=== PATIENT | female | born 1955 | race Caucasian/White ===

== ENCOUNTER 2017-06-08 10:48 | Outpatient (CLI) | payer OTHER ==
[~2017-06-08 10:48] MED LIST: GLEEVEC100 MG PO; VASERETIC; [UNRECOGNIZED DRUG - OTHER]
== END 2017-06-08 10:54 | disposition home or self-care (01) ==
LOC: SONOGRAMA 10:48
DX: M25.511 Pain in right shoulder (principal); M75.41 Impingement syndrome of right shoulder

== ENCOUNTER 2017-12-07 11:09 | Outpatient (CLI) | payer OTHER | END 2017-12-07 11:11 | disposition home or self-care (01) | LOC: RAD 11:09 | DX: M25.551 Pain in right hip (principal); M25.552 Pain in left hip ==

== ENCOUNTER 2018-02-19 09:49 | Outpatient (CLI) | payer OTHER | END 2018-02-19 09:52 | disposition home or self-care (01) | LOC: MAMO-SONO 09:49 | DX: Z12.31 Encounter for screening mammogram for malignant neoplasm of breast (principal); Z87.898 Personal history of other specified conditions; N64.89 Other specified disorders of breast; C91.11 Chronic lymphocytic leukemia of B-cell type in remission; C91.12 Chronic lymphocytic leukemia of B-cell type in relapse; C95.90 Leukemia, unspecified not having achieved remission; C95.91 Leukemia, unspecified, in remission; F32.89 Other specified depressive episodes; C91.10 Chronic lymphocytic leukemia of B-cell type not having achieved remission; E03.8 Other specified hypothyroidism; E66.8 Other obesity; E78.89 Other lipoprotein metabolism disorders; M15.8 Other polyosteoarthritis; M54.5 Low back pain; I11.9 Hypertensive heart disease without heart failure; Z68.31 Body mass index [BMI] 31.0-31.9, adult ==

== ENCOUNTER → 2018-03-12 | Outpatient (CLI) | payer OTHER | END | disposition home or self-care (01) | LOC: NUCLEAR 08:37 | DX: M54.5 Low back pain (principal); M15.9 Polyosteoarthritis, unspecified; C91.10 Chronic lymphocytic leukemia of B-cell type not having achieved remission; C91.11 Chronic lymphocytic leukemia of B-cell type in remission; I11.9 Hypertensive heart disease without heart failure; Z86.31 Personal history of diabetic foot ulcer; M81.0 Age-related osteoporosis without current pathological fracture ==

== ENCOUNTER 2019-04-14 11:19 | Outpatient (CLI) | payer OTHER | END 2019-04-14 16:37 | disposition home or self-care (01) | LOC: SONOGRAMA 11:19 | DX: M25.511 Pain in right shoulder (principal); M25.512 Pain in left shoulder; M25.551 Pain in right hip; M25.552 Pain in left hip ==

== ENCOUNTER 2019-05-04 14:07 | Outpatient (CLI) | payer OTHER | END 2019-05-04 14:15 | disposition home or self-care (01) | LOC: RAD 14:07 | DX: R07.89 Other chest pain (principal) ==

== ENCOUNTER 2019-07-11 09:33 | Outpatient (CLI) | payer OTHER | END 2019-07-13 06:28 | disposition home or self-care (01) | LOC: MAMO-SONO 09:33 | DX: Z12.31 Encounter for screening mammogram for malignant neoplasm of breast (principal); Z87.898 Personal history of other specified conditions; Z68.31 Body mass index [BMI] 31.0-31.9, adult; M81.0 Age-related osteoporosis without current pathological fracture; F32.89 Other specified depressive episodes; I11.9 Hypertensive heart disease without heart failure; M15.8 Other polyosteoarthritis; M54.5 Low back pain; C91.10 Chronic lymphocytic leukemia of B-cell type not having achieved remission; C91.11 Chronic lymphocytic leukemia of B-cell type in remission; C91.12 Chronic lymphocytic leukemia of B-cell type in relapse; E03.8 Other specified hypothyroidism; E66.8 Other obesity; C95.90 Leukemia, unspecified not having achieved remission ==

== ENCOUNTER 2020-09-26 08:41 | Outpatient (CLI) | payer OTHER | END 2020-09-26 08:48 | disposition home or self-care (01) | LOC: SONOGRAMA 08:41 → MAMO-SONO 13:45 | PROVIDERS: ATTEND Orthopaedic Surgery | DX: M25.512 Pain in left shoulder (principal); M75.122 Complete rotator cuff tear or rupture of left shoulder, not specified as traumatic ==

== ENCOUNTER 2021-03-07 10:02 | Outpatient (CLI) | payer OTHER | END 2021-03-07 10:15 | disposition home or self-care (01) | LOC: MAMO-SONO 10:02 | PROVIDERS: ATTEND Internal Medicine | DX: N64.59 Other signs and symptoms in breast (principal); Z12.31 Encounter for screening mammogram for malignant neoplasm of breast; M81.0 Age-related osteoporosis without current pathological fracture; F32.89 Other specified depressive episodes; I11.9 Hypertensive heart disease without heart failure; M15.8 Other polyosteoarthritis; M54.59 Other low back pain; C91.11 Chronic lymphocytic leukemia of B-cell type in remission; C91.12 Chronic lymphocytic leukemia of B-cell type in relapse; C95.90 Leukemia, unspecified not having achieved remission; E03.8 Other specified hypothyroidism; E66.8 Other obesity ==

== ENCOUNTER 2021-05-27 08:13 | Outpatient (CLI) | payer OTHER | END 2021-05-27 08:18 | disposition home or self-care (01) | LOC: MRI 08:13 | PROVIDERS: ATTEND Psychiatry & Neurology Clinical Neurophysiology | DX: G11.2 Late-onset cerebellar ataxia (principal); G61.0 Guillain-Barre syndrome | CPT/HCPCS: 70551 ==

== ENCOUNTER 2022-03-24 09:59 | Outpatient (CLI) | payer OTHER | END 2022-03-24 10:03 | disposition home or self-care (01) | LOC: MAMO-SONO 09:59 | PROVIDERS: ATTEND Internal Medicine | DX: Z12.31 Encounter for screening mammogram for malignant neoplasm of breast (principal); C92.11 Chronic myeloid leukemia, BCR/ABL-positive, in remission; C91.11 Chronic lymphocytic leukemia of B-cell type in remission; C91.12 Chronic lymphocytic leukemia of B-cell type in relapse; C95.90 Leukemia, unspecified not having achieved remission ==

== ENCOUNTER 2023-05-19 07:34 | Outpatient (CLI) | payer OTHER | END 2023-05-19 07:35 | disposition home or self-care (01) | LOC: NUCLEAR 07:34 | PROVIDERS: ATTEND Internal Medicine | DX: I20.9 Angina pectoris, unspecified (principal) | CPT/HCPCS: 78452; 93017; A9500; J0153 ==

== ENCOUNTER 2023-10-23 09:57 | Outpatient (CLI) | payer OTHER | END 2023-10-23 10:07 | disposition home or self-care (01) | LOC: MRI 09:57 | PROVIDERS: ATTEND Anesthesiology | DX: M54.50 Low back pain, unspecified (principal) | CPT/HCPCS: 72148 ==

== ENCOUNTER 2024-12-04 16:12 | Emergency (ER) | payer OTHER ==
[~2024-12-04] VITALS: Ht 154.9 cm; Wt 78.0 kg
[2024-12-04] MEDS ORDERED: MECLIZINE HCL25 MG PO (17:06)
[2024-12-04] MEDS ORDERED: BISOPROLOL FUMAR5 MG PO (17:06)
[2024-12-04] MEDS ORDERED: ENTRESTO 24 MG1 EACH PO (17:07)
[2024-12-04] MEDS ORDERED: [UNRECOGNIZED DRUG - OTHER] PO (17:07)
[2024-12-04] MEDS ORDERED: JARDIANCE10 MG PO (17:07)
[2024-12-04] MEDS ORDERED: FUROSEMIDE20 MG PO (17:07)
[2024-12-04] MEDS ORDERED: CEFTRIAXONE SODIUM 1,000 MG VIAL IV ONE (17:45)
[2024-12-04] MEDS ORDERED: 0.9 % SODIUM CHLORIDE 1,000 ML IV ONE (17:45)
[2024-12-04] MEDS ORDERED: FAMOtidine 10 MG/ML (4ML VIAL) IV ONE (17:45)
[2024-12-04] MEDS ORDERED: CEFTRIAXONE SODIUM 1,000 MG VIAL ONE (18:19)
[2024-12-04] MEDS ORDERED: FAMOTIDINE/PF 20 MG/2 ML VIAL ONE (18:19)
[2024-12-04 18:23] LABS: BASO % 0.8 % (0.1-1.2); EOS # 0.72 (0.04-0.54); EOS % 8.7 % (0.7-7.0); LYMPH # 1.75 (1.18-3.74); LYMPH % 21.1 % (19.3-53.1); MEAN PLATELET VOLUME 10.40 fl (9.4-12.4); MONO # 0.72 (0.24-0.82); MONO % 8.7 % (4.7-12.5); NEUT # 5.02 (1.56-6.13); NEUT % 60.5 % (34.0-71.1); RED CELL DISTRIBUTION WIDTH 13.6 % (11.6-14.4)
[2024-12-04 18:26] LABS: ERYTHROCYTE SEDIMENTATION RATE 25 mm/hr (0-30)
[2024-12-04 18:52] LABS: ALT/SGPT 26.0 U/L (12-78); AST/SGOT 20.0 U/L (15-37); BILIRUBIN TOTAL 0.46 mg/dL (0.3-1.2); BUN CREA RATIO 10.0 (7.0-25.0); CREATININE SERUM 0.92 mg/dL (0.55-1.02); GFR 60.7; GLOBULINA 3.9 G/DL (2.4-3.5); GLUCOSE FASTING 88.0 mg/dL (65-100); OSMOLALITY SERUM 281.0 MOSM/KG (275-295)
[2024-12-04 19:01] LABS: D DIMER 1.66 MG/L; INR 1.02
[2024-12-04 23:19] LABS: URINE APPEARANCE Clear; URINE BILIRRUBIN Negative (NEGATIVE); URINE BLOOD Negative; URINE COLOR Yellow; URINE KETONE Negative (NEGATIVE); URINE LEUKOCYTE Negative; URINE NITRATE Negative; URINE PROTEIN Trace (NEGATIVE); URINE UROBILINOGEN 1.0 E.U./dl
[2024-12-04 23:23] LABS: URINE BACTERIA 2251.1 uL (0.0-1933); URINE EPITHELIAL CELLS 13.6 uL (0.0-38.8); URINE RBC 9.5 uL (0.0-20.8); URINE WBC 21.5 uL (0.0-23.2)
[2024-12-04 23:33] LABS: URINE CAST 0.00 uL (0.0-1.40); URINE GLUCOSE 250 MG/DL (NEGATIVE)
[2024-12-05] MEDS ORDERED: METHYLPREDNISOLONE SOD SUCC 125 MG VIAL IV ONE (00:30)
[2024-12-05] MEDS ORDERED: DIPHENHYDRAMINE HCL 50 MG/ML VIAL 1ML IV ONE (00:30)
[2024-12-05] MEDS ORDERED: ENALAPRILAT DIHYDRATE 1.25 MG/ML VIAL IV PRN (01:00)
[2024-12-05] MEDS ORDERED: DIPHENHYDRAMINE HCL 50 MG/ML VIAL 1ML ONE (01:30)
[2024-12-05] MEDS ORDERED: METHYLPREDNISOLONE SOD SUCC 125 MG VIAL ONE (01:30)
== END 2024-12-05 13:25 | disposition home or self-care (01) ==
LOC: ER 16:13
PROVIDERS: General Practice
DX: I87.2 Venous insufficiency (chronic) (peripheral) (principal); M79.604 Pain in right leg; R53.1 Weakness; Z88.6 Allergy status to analgesic agent; Z88.8 Allergy status to other drugs, medicaments and biological substances; I50.9 Heart failure, unspecified; Z85.6 Personal history of leukemia; M79.605 Pain in left leg
CPT/HCPCS: 36415; 71250; 73590; 73630; 82803; 93970; 96365; 96366; 99284; J0696; J1200; J3490; J7030